=== PATIENT | female | born 1955 | race Two or more races ===

== ENCOUNTER 2016-11-18 21:17 | Emergency (ER) | payer MEDICAID, MEDICARE ==
[~2016-11-18] VITALS: Ht 172.7 cm; Wt 70.8 kg
[~2016-11-18 21:17] MED LIST: AMLO10TA2 PO; ARIP5TAB4 PO; BUPR150T10 PO; CITA40TA22 PO; ESTR2TAB PO; FURO-144 PO; GABA600T2 PO; OMEG1CAP55 PO; PANT40TA2 PO; PRAV80TA21 PO; VALS320T2 PO
[2016-11-18] MEDS ORDERED: IV NS 0.9% 1,000 ML BAG IV ONE (22:30)
[2016-11-18 22:38] LABS: BASOPHILS % (AUTO) 0.2 % (0.0-2.0); DIFF TOTAL % 100 %; EOSINOPHILS % (AUTO) 0.3 % (0.0-6.0); HEMATOCRIT 35 % (33-45); HEMOGLOBIN 11.8 g/dL (11.5-14.8); LYMPHOCYTES % (AUTO) 12.8 % (20.0-44.0); MEAN CORPUSCULAR HEMOGLOBIN 34 PG (26.0-33.0); MEAN CORPUSCULAR HGB CONC 34 g/dl (31.0-36.0); MEAN CORPUSCULAR VOLUME 101 fL (82-100); MONOCYTES # (AUTO) 0.3 /CMM (0.1-1.30); MONOCYTES % (AUTO) 4.3 % (2.0-12.0); NEUTROPHILS # (AUTO) 6.5 /CMM (1.8-8.9); NEUTROPHILS % (AUTO) 82.4 % (43.0-81.0); PLATELET COUNT (AUTO) 262 /CMM (150-450); RED BLOOD CELL COUNT(AUTO) 3.48 MIL/uL (4.0-5.2); WHITE BLOOD COUNT (AUTO) 7.9 K/uL (4.3-11.0)
[2016-11-18] MEDS ORDERED: IV SET PRIMARY 1 EA INFUS.SET MC ONE (22:44)
[2016-11-18] MEDS ORDERED: IV NS 0.9% 1,000 ML ONE (22:44)
[2016-11-18 22:48] LABS: ANION GAP 9 (5-14); CARBON DIOXIDE 30 mmol/L (21-32); CHLORIDE 103 mmol/L (98-107); CREATININE 3.4 mg/dL (0.6-1.3); GFR 14 mL/min (>60); GLUCOSE 127 mg/dL (74-106); POTASSIUM 4.5 mmol/L (3.5-5.1); SODIUM SERUM 138 mmol/L (136-145); UREA NITROGEN, BLOOD 18 mg/dL (7-18)
[2016-11-18 22:53] LABS: ACETAMINOPHEN 0 ug/ml (10-30); ALANINE AMINOTRANSFERASE 26 U/L (12-78); ALBUMIN 4.1 g/dL (3.4-5.0); ASPARTATE AMINOTRANSFERASE 14 U/L (15-37); BILIRUBIN,DIRECT 0.1 mg/dL (0.0-0.2); BILIRUBIN,TOTAL 0.5 mg/dL (0.2-1.0); INDIRECT BILIRUBIN 0.4 mg/dL (0.0-1.1); SALICYLATE 2.1 mg/dL (2.8-20.0); TOTAL PROTEIN, SERUM 6.9 g/dL (6.4-8.2)
[2016-11-18 23:03] LABS: THYROID STIMULATING HORMONE 1.141 uIU/mL (0.358-3.74)
[2016-11-19] MEDS ORDERED: IV NS 0.9% 1,000 ML BAG IV ONE ×4 (00:30→07:30)
[2016-11-19] MEDS ORDERED: IV SET PRIMARY 1 EA INFUS.SET MC ONE (01:18)
[2016-11-19] MEDS ORDERED: IV NS 0.9% 1,000 ML ONE ×4 (01:18→08:07)
[2016-11-19 02:20] LABS: POTASSIUM 4.4 mmol/L (3.5-5.1)
[2016-11-19 02:21] LABS: CALCIUM, SERUM 8.4 mg/dL (8.5-10.1); CREATININE 2.8 mg/dL (0.6-1.3)
[2016-11-19] MEDS ORDERED: IV SET PRIMARY PUMP SET 1 EA INFUS.SET MC ONE ×3 (03:11→08:07)
[2016-11-19 06:38] LABS: KETONES,URINE NEGATIVE (NEGATIVE); LEUKOCYTE ESTERASE ,URINE 1+ (NEGATIVE)
[2016-11-19 06:41] LABS: ADD UA MICROSCOPIC YES
[2016-11-19 06:58] LABS: ADD URINE CULTURE YES; RBC,URINE 0-2 /HPF (0-2)
[2016-11-19] MEDS ORDERED: NITROFURANTOIN/NITROFURAN MAC 100 MG CAPSULE PO ONE (07:30)
[2016-11-19] MEDS ORDERED: CEFTRIAXONE 1GM BAG (ER ONLY) 1 GM/50 ML PIGGYBACK IV ONE (07:30)
[2016-11-19] MEDS ORDERED: NITROFURANTOIN/NITROFURAN MAC 100 MG CAPSULE ONE (08:06)
[2016-11-19] MEDS ORDERED: CEFTRIAXONE 1GM BAG (ER ONLY) 50 ML IV ONE (08:06)
[2016-11-19 10:01] VITALS: BP 112/63
[2016-11-20] MEDS ORDERED: FURO40TA5 PO (02:42)
[2016-11-20] MEDS ORDERED: NABU500T3 PO (02:42)
[2016-11-20] MEDS ORDERED: ZOLP10TA6 PO (02:42)
== END 2016-11-19 10:02 | disposition home or self-care (01) ==
LOC: ER 21:23
DX: T42.6X1A Poisoning by other antiepileptic and sedative-hypnotic drugs, accidental (unintentional), initial encounter (principal); E86.0 Dehydration; N39.0 Urinary tract infection, site not specified; R10.9 Unspecified abdominal pain; I10 Essential (primary) hypertension; K21.9 Gastro-esophageal reflux disease without esophagitis; F32.9 Major depressive disorder, single episode, unspecified; G89.29 Other chronic pain; Z98.890 Other specified postprocedural states; Y92.89 Other specified places as the place of occurrence of the external cause
CPT/HCPCS: 36415; 70450-TC; 80048-TC; 80076-TC; 81000-TC; 82140-TC; 84443-TC; 85025-TC; 87086-TC; A4606; G0480; G6039-TC; J0696; J7030; Z7610

== ENCOUNTER 2016-11-19 19:02 | Inpatient (IN) | payer MEDICARE, OTHER ==
[~2016-11-19] VITALS: Ht 172.7 cm; Wt 76.8 kg
[2016-11-19 20:21] LABS: BASOPHILS # (AUTO) 0.3 /CMM (0.0-0.2); DIFF TOTAL % 100 %; EOSINOPHILS # (AUTO) 0.1 /CMM (0.0-0.7); EOSINOPHILS % (AUTO) 0.8 % (0.0-6.0); HEMATOCRIT 36 % (33-45); HEMOGLOBIN 12.4 g/dL (11.5-14.8); LYMPHOCYTES # (AUTO) 1.1 /CMM (0.8-4.8); LYMPHOCYTES % (AUTO) 15.4 % (20.0-44.0); MEAN CORPUSCULAR HEMOGLOBIN 34 PG (26.0-33.0); MEAN CORPUSCULAR HGB CONC 34 g/dl (31.0-36.0); MEAN CORPUSCULAR VOLUME 100 fL (82-100); MONOCYTES # (AUTO) 0.2 /CMM (0.1-1.30); MONOCYTES % (AUTO) 3.4 % (2.0-12.0); NEUTROPHILS # (AUTO) 5.3 /CMM (1.8-8.9); NEUTROPHILS % (AUTO) 76.4 % (43.0-81.0); RED BLOOD CELL COUNT(AUTO) 3.62 MIL/uL (4.0-5.2)
[2016-11-19] MEDS ORDERED: IV NS 0.9% 1,000 ML ONE (20:24)
[2016-11-19] MEDS ORDERED: IV SET PRIMARY 1 EA INFUS.SET MC ONE (20:24)
[2016-11-19 20:26] LABS: ANION GAP 10 (5-14); CARBON DIOXIDE 27 mmol/L (21-32); CHLORIDE 108 mmol/L (98-107); GFR 56 mL/min (>60); GLUCOSE 113 mg/dL (74-106); POTASSIUM 4.9 mmol/L (3.5-5.1); SODIUM SERUM 140 mmol/L (136-145); UREA NITROGEN, BLOOD 10 mg/dL (7-18)
[2016-11-19] MEDS ORDERED: IV NS 0.9% 1,000 ML BAG IV ONE (20:30)
[2016-11-19 20:32] LABS: ALANINE AMINOTRANSFERASE 20 U/L (12-78); ALBUMIN 3.5 g/dL (3.4-5.0); ASPARTATE AMINOTRANSFERASE 30 U/L (15-37); BILIRUBIN,TOTAL 0.4 mg/dL (0.2-1.0); TOTAL PROTEIN, SERUM 6.4 g/dL (6.4-8.2)
[2016-11-19 20:34] LABS: TROPONIN I < 0.017 ng/mL (0.00-0.056)
[2016-11-19 20:36] LABS: ACETAMINOPHEN 0 ug/ml (10-30); INDIRECT BILIRUBIN 0.4 mg/dL (0.0-1.1); SALICYLATE 2.2 mg/dL (2.8-20.0)
[2016-11-19 21:02] LABS: LACTIC ACID 0.5 mmol/L (0.4-2.0)
[2016-11-19 21:15] LABS: CANNABINOID, URINE NEGATIVE (NEGATIVE); PHENCYCLIDINE SCREEN,URINE NEGATIVE (NEGATIVE)
[2016-11-19 22:08] LABS: ADD UA MICROSCOPIC NO; KETONES,URINE Negative (NEGATIVE); LEUKOCYTE ESTERASE ,URINE Negative (NEGATIVE); PH,URINE 5.5 (5.0-8.0)
[2016-11-19 22:59] LABS: BAND % (MANUAL) 2 % (0.0-5.0); BASOPHILS % (MANUAL) 2 % (0.0-2.0); LYMPHOCYTES % (MANUAL) 15 % (16-48)
[2016-11-19 23:00] LABS: PLATELET ESTIMATE ADEQUATE
[2016-11-19] MEDS ORDERED: IOHEXOL-300 100 ML VIAL IV ONE (23:02)
[2016-11-19] MEDS ORDERED: IV NS 0.9% 250 ML IV ONE (23:02)
[2016-11-19] MEDS ORDERED: CT SWABBABLE VALVE TRANS SET 1 EA INFUS.SET MC ONE (23:02)
[2016-11-20] VITALS (7 sets, daily range): BP systolic 121–161; BP diastolic 66–89
[2016-11-20] MEDS ORDERED: IV SET PRIMARY 1 EA INFUS.SET MC ONE (00:44)
[2016-11-20] MEDS ORDERED: IV NS 0.9% 1,000 ML ONE ×2 (00:44→02:57)
[2016-11-20] MEDS ORDERED: IV NS 0.9% 1,000 ML BAG IV ONE (01:00)
[2016-11-20] MEDS ORDERED: ONDANSETRON HCL/PF 4 MG/2 ML VIAL IVP PRN (02:00)
[2016-11-20] MEDS ORDERED: Z GUARD REMEDY 2 OZ OINT TP PRN (02:00)
[2016-11-20] MEDS ORDERED: ZOLP10TA6 PO (02:42)
[2016-11-20] MEDS ORDERED: FURO40TA5 PO (02:42)
[2016-11-20] MEDS ORDERED: NABU500T3 PO (02:42)
[2016-11-20] MEDS ORDERED: IV SET PRIMARY PUMP SET 1 EA INFUS.SET MC ONE (03:00)
[2016-11-20] MEDS: buPROPion SR 150 MG TABLET.ER PO SCH (08:43)
[2016-11-20] MEDS: CITALOPRAM HYDROBROMIDE 20 MG TABLET PO SCH (08:43)
[2016-11-20] MEDS: VALSARTAN 80 MG TABLET PO SCH (08:44)
[2016-11-20] MEDS: PANTOPRAZOLE 40 MG TABLET.DR PO SCH (08:44)
[2016-11-20] MEDS: FUROSEMIDE 40 MG TABLET PO SCH (08:44)
[2016-11-20] MEDS: ARIPIPRAZOLE 5 MG TABLET PO SCH (08:44)
[2016-11-20] MEDS: GABAPENTIN 300 MG CAPSULE PO SCH ×3 (08:44→17:20)
[2016-11-20] MEDS: AMLODIPINE BESYLATE 10 MG TABLET PO SCH (08:45)
[2016-11-20] MEDS: IV NS 0.9% 1,000 ML IV PRN (15:29)
[2016-11-20] MEDS: ATORVASTATIN 40 MG TABLET PO SCH (22:01)
[2016-11-21] MEDS: ACETAMINOPHEN 325 MG TABLET PO PRN ×2 (01:25→21:20)
[2016-11-21] MEDS: IV NS 0.9% 1,000 ML IV PRN (03:51)
[2016-11-21 06:50] LABS: BASOPHILS % (AUTO) 0.5 % (0.0-2.0); DIFF TOTAL % 100 %; EOSINOPHILS # (AUTO) 0.1 /CMM (0.0-0.7); EOSINOPHILS % (AUTO) 0.9 % (0.0-6.0); HEMATOCRIT 33 % (33-45); HEMOGLOBIN 11.3 g/dL (11.5-14.8); LYMPHOCYTES # (AUTO) 1.6 /CMM (0.8-4.8); MEAN CORPUSCULAR HEMOGLOBIN 34 PG (26.0-33.0); MEAN CORPUSCULAR HGB CONC 34 g/dl (31.0-36.0); MEAN CORPUSCULAR VOLUME 101 fL (82-100); MONOCYTES # (AUTO) 0.4 /CMM (0.1-1.30); MONOCYTES % (AUTO) 6.7 % (2.0-12.0); NEUTROPHILS # (AUTO) 4.3 /CMM (1.8-8.9); NEUTROPHILS % (AUTO) 66.9 % (43.0-81.0); PLATELET COUNT (AUTO) 220 /CMM (150-450); RED BLOOD CELL COUNT(AUTO) 3.29 MIL/uL (4.0-5.2); WHITE BLOOD COUNT (AUTO) 6.5 K/uL (4.3-11.0)
[2016-11-21 07:26] LABS: ALBUMIN 3.2 g/dL (3.4-5.0); BILIRUBIN,TOTAL 0.4 mg/dL (0.2-1.0); CREATININE 0.8 mg/dL (0.6-1.3); PHOSPHORUS 2.5 mg/dL (2.5-4.9); POTASSIUM 3.3 mmol/L (3.5-5.1)
[2016-11-21 07:33] LABS: THYROID STIMULATING HORMONE 0.144 uIU/mL (0.358-3.74)
[2016-11-21 08:00] VITALS: BP 140/83
[2016-11-21] MEDS: ARIPIPRAZOLE 5 MG TABLET PO SCH (09:12)
[2016-11-21] MEDS: buPROPion SR 150 MG TABLET.ER PO SCH (09:13)
[2016-11-21] MEDS: FUROSEMIDE 40 MG TABLET PO SCH (09:13)
[2016-11-21] MEDS: GABAPENTIN 300 MG CAPSULE PO SCH ×3 (09:13→16:15)
[2016-11-21] MEDS: CITALOPRAM HYDROBROMIDE 20 MG TABLET PO SCH (09:13)
[2016-11-21] MEDS: AMLODIPINE BESYLATE 10 MG TABLET PO SCH (09:13)
[2016-11-21] MEDS: VALSARTAN 80 MG TABLET PO SCH (09:14)
[2016-11-21] MEDS: PANTOPRAZOLE 40 MG TABLET.DR PO SCH (09:14)
[2016-11-21] MEDS ORDERED: POTASSIUM CHLORIDE 20 MEQ TAB.PRT.SR PO ONE (11:30)
[2016-11-21] MEDS ORDERED: SECONDARY IV SET 1 EA INFUS.SET MC ONE (11:50)
[2016-11-21] MEDS: Magnesium 1GM/D5W 100ML PREMIX 100 ML IV SCH ×2 (11:53→13:08)
[2016-11-21] MEDS ORDERED: POLYETHYLENE GLYCOL 3350 17 GM POWD.PACK PO PRN (13:00)
[2016-11-21 16:00] VITALS: BP 139/67
[2016-11-21 17:40] VITALS: BP_SYST 129; BP_SYST 139; BP_SYST 143; BP_DIAS 67; BP_DIAS 80; BP_DIAS 82
[2016-11-21 20:00] VITALS: BP 154/89
[2016-11-21 21:00] VITALS: BP 154/89
[2016-11-21] MEDS: ATORVASTATIN 40 MG TABLET PO SCH (21:20)
[2016-11-22] MEDS: ACETAMINOPHEN 325 MG TABLET PO PRN (03:37)
[2016-11-22 06:54] LABS: BASOPHILS % (AUTO) 0.5 % (0.0-2.0); DIFF TOTAL % 100 %; EOSINOPHILS # (AUTO) 0.3 /CMM (0.0-0.7); EOSINOPHILS % (AUTO) 5.4 % (0.0-6.0); HEMATOCRIT 35 % (33-45); HEMOGLOBIN 11.7 g/dL (11.5-14.8); LYMPHOCYTES # (AUTO) 1.7 /CMM (0.8-4.8); LYMPHOCYTES % (AUTO) 28.3 % (20.0-44.0); MEAN CORPUSCULAR HEMOGLOBIN 34 PG (26.0-33.0); MEAN CORPUSCULAR HGB CONC 34 g/dl (31.0-36.0); MEAN CORPUSCULAR VOLUME 101 fL (82-100); MONOCYTES # (AUTO) 0.5 /CMM (0.1-1.30); MONOCYTES % (AUTO) 8.5 % (2.0-12.0); NEUTROPHILS # (AUTO) 3.5 /CMM (1.8-8.9); NEUTROPHILS % (AUTO) 57.3 % (43.0-81.0); PLATELET COUNT (AUTO) 229 /CMM (150-450); RED BLOOD CELL COUNT(AUTO) 3.44 MIL/uL (4.0-5.2); WHITE BLOOD COUNT (AUTO) 6.1 K/uL (4.3-11.0)
[2016-11-22 07:23] LABS: CALCIUM, SERUM 9.3 mg/dL (8.5-10.1); CREATININE 0.9 mg/dL (0.6-1.3); POTASSIUM 2.9 mmol/L (3.5-5.1)
[2016-11-22 08:00] VITALS: BP 131/84
[2016-11-22] MEDS: AMLODIPINE BESYLATE 10 MG TABLET PO SCH (08:30)
[2016-11-22] MEDS: CITALOPRAM HYDROBROMIDE 20 MG TABLET PO SCH (08:30)
[2016-11-22] MEDS: GABAPENTIN 300 MG CAPSULE PO SCH ×2 (08:30→13:04)
[2016-11-22 08:31] VITALS: BP 131/84
[2016-11-22] MEDS: VALSARTAN 80 MG TABLET PO SCH (08:31)
[2016-11-22] MEDS: ARIPIPRAZOLE 5 MG TABLET PO SCH (08:31)
[2016-11-22] MEDS: PANTOPRAZOLE 40 MG TABLET.DR PO SCH (08:31)
[2016-11-22] MEDS: FUROSEMIDE 40 MG TABLET PO SCH (08:31)
[2016-11-22] MEDS ORDERED: BUPROPION XL 150 MG TAB.ER.24 PO SCH (09:00)
[2016-11-22] MEDS ORDERED: POTASSIUM CHLORIDE 20 MEQ TAB.PRT.SR PO ONE (10:30)
[2016-11-22] MEDS ORDERED: BUPR300T52 PO (10:57)
== END 2016-11-22 15:45 | disposition home or self-care (01) | DRG 92 ==
LOC: ER 19:03 → TELE 11-20 01:21 → MED 11-20 08:30
PROVIDERS: ADMIT Nurse Practitioner Acute Care; ATTEND Internal Medicine
DX: G92 Toxic encephalopathy (principal); F33.2 Major depressive disorder, recurrent severe without psychotic features; F17.210 Nicotine dependence, cigarettes, uncomplicated; K21.9 Gastro-esophageal reflux disease without esophagitis; T50.905A Adverse effect of unspecified drugs, medicaments and biological substances, initial encounter; Y92.009 Unspecified place in unspecified non-institutional (private) residence as the place of occurrence of the external cause; F19.10 Other psychoactive substance abuse, uncomplicated; E83.42 Hypomagnesemia; E87.6 Hypokalemia; I11.9 Hypertensive heart disease without heart failure; G89.29 Other chronic pain; M54.5 Low back pain; G47.00 Insomnia, unspecified; E03.9 Hypothyroidism, unspecified; K59.00 Constipation, unspecified
CPT/HCPCS: 36415; 70450-TC; 71010-TC; 76536-TC; 80048-TC; 80053-TC; 80061-TC; 80076-TC; 80305; 81000-TC; 83605-TC; 83735-TC; 84100-TC; 84436-TC; 84443-TC; 84481; 84484-TC; 85025-TC; 87081-TC; 87086-TC; 94799-TC; 97001-TC; 97116-TC; 97530-TC; A4606; G0480; G6039-TC; J3475; J7030; J7050; Q9967; Z7610